=== PATIENT | female | born 1945 | race Hispanic/Latino ===

== ENCOUNTER 2018-02-04 19:19 | Emergency (ER) | payer MEDICARE, MEDICAID ==
[~2018-02-04] VITALS: Ht 154.9 cm; Wt 57.2 kg
[2018-02-04 21:06] LABS: HEMATOCRIT 33.7 % (37.0-47.0); HEMOGLOBIN 10.7 g/dl (12.0-16.0); IMMATURE GRANULOCYTES 0.4 % (0.0-5.0); MEAN CELL VOLUME 90.3 fL CALC (80.0-100.0); MEAN CORPUSCULAR HGB 28.7 pG CALC (26.0-32.0); MEAN CORPUSCULAR HGB CONC 31.8 g/L CALC (32.0-36.0); NEUT# 12.34 thou/uL (2.00-7.15); RED BLOOD COUNT 3.73 mill/uL (4.20-5.60); RED CELL DISTRI WIDTH 15.8 % (11.5-15.5)
[2018-02-04 21:07] LABS: URINE BILIRUBIN - DIPSTICK NEGATIVE (NEGATIVE); URINE BLOOD DIPSTICK LARGE (NEGATIVE); URINE COLOR YELLOW; URINE GLUCOSE - DIPSTICK NEGATIVE (NEGATIVE); URINE KETONE NEGATIVE (NEGATIVE); URINE LEUK ESTERASE TRACE (NEGATIVE); URINE NITRITE - DIPSTICK NEGATIVE (Negative); URINE PROTEIN - DIPSTICK NEGATIVE (NEG-TRACE); URINE SPECIFIC GRAVITY >=1.030; URINE UROBILINOGEN - DIPSTICK 0.2 E.U./dL (0.2)
[2018-02-04 21:09] LABS: URINE CLARITY CLEAR; URINE SQUAMOUS EPITHELIAL CELL FEW EPI/hpf (0-FEW); URINE WBC 0-2 WBC/hpf (0-5)
[2018-02-04 21:16] LABS: ALBUMIN 4.1 g/dL (3.2-5.0); ALKALINE PHOSPHATASE 46 u/l (38-126); ANION GAP 13 (6-22 (CALC)); BILIRUBIN, TOTAL 0.2 mg/dL (0.0-1.4); BUN 17 mg/dL (8-23); BUN/CREATININE RATIO 29 (12-20 (CALC)); CARBON DIOXIDE 25 mmol/l (22-30); CHLORIDE 105 mmol/l (95-108); CREATININE 0.6 mg/dL (0.5-1.0); GFR > 60 ML/MIN (>=60 (CALC)); GFR FOR AFR.AMER. > 60 ML/MIN (>=60 (CALC)); SGOT/AST 18 u/l (9-36); SODIUM 140 mmol/l (137-146); TOTAL PROTEIN 6.7 g/dL (6.3-8.2)
[2018-02-04] MEDS ORDERED: LISINOPRIL20 M1 PO (21:40)
[2018-02-04] MEDS ORDERED: LEVOTHYROXIN100 MC1 PO (21:40)
[2018-02-04] MEDS ORDERED: DITROPAN PO (21:40)
[2018-02-04] MEDS ORDERED: METFORMIN500 MG PO (21:41)
[2018-02-04] MEDS ORDERED: COREG6.25 MG PO (21:41)
[2018-02-04] MEDS ORDERED: LOFIBRA54 MG PO (21:41)
[2018-02-04] MEDS ORDERED: OMEPRAZOLE10 MG PO (21:42)
[2018-02-04] MEDS ORDERED: LIPITOR20 MG PO (21:42)
[2018-02-04] MEDS ORDERED: COREG25 MG PO (22:00)
[2018-02-04 22:18] VITALS: BP 161/74
== END 2018-02-04 22:18 | disposition home or self-care (01) ==
LOC: ED 19:19
PROVIDERS: Family Medicine
DX: I10 Essential (primary) hypertension (principal); D72.829 Elevated white blood cell count, unspecified; R42 Dizziness and giddiness; R51 Headache; F17.210 Nicotine dependence, cigarettes, uncomplicated

== ENCOUNTER 2021-11-06 13:14 | Emergency (ER) | payer MEDICARE, OTHER ==
[~2021-11-06] VITALS: Ht 154.9 cm; Wt 59.0 kg
[~2021-11-06 13:14] MED LIST: COREG25 MG PO; COREG6.25 MG PO; DITROPAN PO; LEVOTHYROXIN100 MC1 PO; LIPITOR20 MG PO; LISINOPRIL20 M1 PO; LOFIBRA54 MG PO; METFORMIN500 MG PO; OMEPRAZOLE10 MG PO
[2021-11-06 15:09] VITALS: BP 184/89
[2021-11-06 15:15] VITALS: BP 145/82
[2021-11-06 15:30] VITALS: BP 143/73
[2021-11-06 15:45] VITALS: BP 147/104
[2021-11-06] MEDS ORDERED: PROAIR HFA108 MCG/AC PO (15:58)
[2021-11-06] MEDS ORDERED: PROVENTIL0.083 % IN (15:58)
[2021-11-06] MEDS ORDERED: NEBULIZER KIT/TUBING PO (15:58)
[2021-11-06] MEDS ORDERED: DOXY-CAPS100 MG PO (15:58)
[2021-11-06] MEDS ORDERED: PREDNISONE50 MG PO (15:58)
[2021-11-06 18:15] VITALS: BP 147/104
== END 2021-11-06 18:27 | disposition home or self-care (01) ==
LOC: ED 13:14
DX: J40 Bronchitis, not specified as acute or chronic (principal); Z72.0 Tobacco use